=== PATIENT | female | born 2000 | race Hispanic/Latino ===

== ENCOUNTER 2022-07-25 23:08 | Emergency (ER) | payer SELFPAY ==
[2022-07-25 23:39] LABS: Bilirubin Neg (Negative); Blood, Urine 10 (Negative); Clarity Clear (Clear); Glucose, Urine (Dipstick) Normal (Negative); Ketone, Urine Negative (Negative); Leukocyte Negative (Negative); Nitrite Negative (Negative); Protein, Urine (Dipstick) Negative (Neg-Trace); Urobilinogen Normal mg/dL (Less than 2)
[2022-07-25] MEDS ORDERED: Ketorolac Tromethamine 30 MG/ML VIAL ONE (23:39)
[2022-07-25 23:57] LABS: Bacteria/HPF Rare-Few HPF (None Seen); RBC/HPF 0-3 HPF (0-3); WBC/HPF 0-3 HPF (0-3)
[2022-07-26 00:01] LABS: BHCG - Serum Negative (NEGATIVE); Pregs Control Background? CLEAR/WHITE (CLR/WHITE); Pregs Control Bar Appear? YES (CONTROL BAR)
[2022-07-26 00:10] LABS: ALT (SGPT) 21 U/L (8-55); AST (SGOT) 22 U/L (5-34); Albumin 4.6 g/dL (3.5-5.0); Alkaline Phosphatase 58 U/L (40-110); Anion Gap 17 mmol/L (10-20); BUN (Urea Nitrogen) 10 mg/dL (7.0-18.7); Bilirubin, Total 0.4 mg/dL (0.2-1.2); Calc. Creatinine Clearance 0 mL/min (70-130); Calcium 9.6 mg/dL (7.8-10.44); Carbon Dioxide 22 mmol/L (22-29); Chloride 105 mmol/L (98-107); Estimated GFR 111; Globulin 3.3 g/dL (2.4-3.5); Glucose 96 mg/dL (70-105); Protein, Total 7.9 g/dL (6.0-8.3); Sodium 140 mmol/L (136-145)
[2022-07-26 00:22] LABS: #Basophils 0.1 10x3/uL (0.0-0.2); #Eosinphils 0.2 10x3/uL (0.0-0.5); #Monocytes 0.6 10x3/uL (0.0-1.1); #Neutrophils 3.4 10x3/uL (1.5-8.4); %Basophils 0.6 % (0.0-2.0); %Eosinophils 2.8 % (0.0-6.0); %Lymphocytes 46.2 % (18.0-47.0); %Monocytes 6.9 % (0.0-10.0); %Neutrophils 43.1 % (40.0-75.0); Hemoglobin 10.6 g/dL (12.0-15.5); Mean Corpuscular HGB CONC 29.7 g/dL (32.0-36.0); Mean Corpuscular Hemoglobin 21.2 pg (27.0-33.0); Mean Corpuscular Volume 71.4 fl (81.6-98.3); Mean Platelet Volume 9.4 fl (7.4-10.4); Platelet Count 483 10x3/uL (150-450); RBC Distribution Width 19.8 % (11.5-14.5)
[2022-07-26 01:33] LABS: Anisocytosis SLIGHT = 6-15 cells (100X) (0-5/hpf); Hypochromia MODERATE=16-30 cells (100X) (0-5/hpf); Microcytosis MODERATE=15-30 cells (100X) (0-5/hpf); Ovalocytes SLIGHT = 2-5 cells (100X) (0-1/hpf); Poikilocytosis SLIGHT = 6-15 cells (100X) (0-5/hpf)
[2022-07-26 01:34] LABS: Polychromasia SLIGHT = 2-3 cells (100X) (0-2/hpf)
[2022-07-26 01:35] LABS: Elliptocytes SLIGHT = 2-5 cells (100X) (0-1/hpf); Macrocytosis SLIGHT = 6-15 cells (100X) (0-5/hpf); Platelet Morphology Comment Appears Increased
[2022-07-26 01:36] LABS: Large Platelets SLIGHT
== END 2022-07-26 01:28 | disposition home or self-care (01) ==
LOC: CSHERS 23:08
DX: N83.202 Unspecified ovarian cyst, left side (principal)
CPT/HCPCS: 76856; 80053; 81003; 81015; 84703; 85025; 96374; J1885

== ENCOUNTER 2022-12-09 18:43 | Emergency (ER) | payer OTHER, SELFPAY ==
[2022-12-09] MEDS ORDERED: Ondansetron PF 4 MG/2 ML Vial ONE (19:39)
[2022-12-09 19:40] LABS: Bilirubin Neg (Negative); Blood, Urine 10 (Negative); Clarity Slightly Cloudy (Clear); Glucose, Urine (Dipstick) Normal (Negative); Ketone, Urine 15 mg/dL (Negative); Leukocyte 500 (Negative); Nitrite Negative (Negative); Protein, Urine (Dipstick) Negative (Neg-Trace); Urobilinogen Normal mg/dL (Less than 2)
[2022-12-09 19:52] LABS: Bacteria/HPF Rare-Few HPF (None Seen); CAUTI Indications for Culture Pelvic or flank pain; RBC/HPF 0-3 HPF (0-3); Urine Culture Reflex No No
[2022-12-09 20:09] LABS: #Eosinphils 0.1 10x3/uL (0.0-0.5); #Monocytes 0.6 10x3/uL (0.0-1.1); #Neutrophils 7.2 10x3/uL (1.5-8.4); %Basophils 0.4 % (0.0-2.0); %Eosinophils 0.9 % (0.0-6.0); %Lymphocytes 26.1 % (18.0-47.0); %Monocytes 5.8 % (0.0-10.0); %Neutrophils 66.2 % (40.0-75.0); Hematocrit 38.4 % (34.9-44.5); Mean Corpuscular HGB CONC 33.9 g/dL (32.0-36.0); Mean Corpuscular Hemoglobin 27.5 pg (27.0-33.0); Mean Corpuscular Volume 81.2 fl (81.6-98.3); Mean Platelet Volume 9.3 fl (7.4-10.4); Platelet Count 292 10x3/uL (150-450); RBC Distribution Width 19.9 % (11.5-14.5); Red Blood Cell (RBC) Count 4.73 10x6/uL (3.90-5.03); White Blood Cell (WBC) Count 10.8 10x3/uL (3.5-10.5)
[2022-12-09 20:21] LABS: Anion Gap 16 mmol/L (10-20); BUN (Urea Nitrogen) 5 mg/dL (7.0-18.7); Calc. Creatinine Clearance 0 mL/min (70-130); Calcium 9.3 mg/dL (7.8-10.44); Carbon Dioxide 20 mmol/L (22-29); Chloride 106 mmol/L (98-107); Estimated GFR 133; Glucose 76 mg/dL (70-105); Potassium 4.1 mmol/L (3.5-5.1); Sodium 138 mmol/L (136-145)
[2022-12-09] MEDS ORDERED: Acetaminophen 500 MG TAB ONE (20:29)
[2022-12-09] MEDS ORDERED: cefTRIAXone (ROCEPHIN) 1 GM VIAL ONE (20:29)
== END 2022-12-09 21:58 | disposition home or self-care (01) ==
LOC: CSHERS 18:43
DX: O23.02 Infections of kidney in pregnancy, second trimester (principal); O23.12 Infections of bladder in pregnancy, second trimester; O99.612 Diseases of the digestive system complicating pregnancy, second trimester; O99.712 Diseases of the skin and subcutaneous tissue complicating pregnancy, second trimester; O20.8 Other hemorrhage in early pregnancy; N30.01 Acute cystitis with hematuria; L82.1 Other seborrheic keratosis; Z3A.17 17 weeks gestation of pregnancy
CPT/HCPCS: 76815; 80048; 81001; 85025; 87086; 96374; 96375; J0696; J2405

== ENCOUNTER 2023-05-12 02:14 | Day surgery (SDC) | payer MEDICAID, OTHER ==
[2023-05-12] MEDS ORDERED: hydrALAZINE 20 MG/ML VIAL SLOW IVP PRN (02:47)
[2023-05-12 05:01] VITALS: BMI 31.1
== END 2023-05-12 04:48 | disposition home or self-care (01) ==
LOC: CSHLD/OP 02:14
PROVIDERS: ATTEND Family Medicine
DX: O47.1 False labor at or after 37 completed weeks of gestation (principal); O98.813 Other maternal infectious and parasitic diseases complicating pregnancy, third trimester; B95.1 Streptococcus, group B, as the cause of diseases classified elsewhere; O34.83 Maternal care for other abnormalities of pelvic organs, third trimester; N83.209 Unspecified ovarian cyst, unspecified side; Z79.82 Long term (current) use of aspirin; Z79.899 Other long term (current) drug therapy; Z3A.39 39 weeks gestation of pregnancy
CPT/HCPCS: 99283

== ENCOUNTER 2023-05-14 14:41 | Inpatient (IN) | payer MEDICAID, OTHER, SELFPAY ==
[2023-05-14] MEDS ORDERED: Diphenoxylate HCl/Atropine Tablet PO PRN ×2 (18:42→18:44)
[2023-05-14] MEDS ORDERED: Promethazine HCl 25 MG/ML VIAL IM PRN ×2 (18:42→18:44)
[2023-05-14] MEDS ORDERED: Methylergonovine 0.2 MG/ML VIAL IM PRN ×2 (18:42→18:44)
[2023-05-14] MEDS ORDERED: Ondansetron PF 4 MG/2 ML Vial IVP PRN ×3 (18:42→22:10)
[2023-05-14] MEDS ORDERED: fentaNYL 50 mcg/mL 1 mL Vial SLOW IVP PRN ×2 (18:42→18:44)
[2023-05-14] MEDS ORDERED: Ibuprofen 800 MG TAB PO PRN (18:42)
[2023-05-14] MEDS ORDERED: hydrALAZINE 20 MG/ML VIAL SLOW IVP PRN ×3 (18:42→22:10)
[2023-05-14] MEDS ORDERED: HYDROcodone/Acetaminophen 5/325 mg Tablet PO PRN ×2 (18:42→22:10)
[2023-05-14] MEDS ORDERED: Tranexamic Acid 1,000 MG/10 ML VIAL IVP PRN ×2 (18:42→18:44)
[2023-05-14] MEDS ORDERED: Carboprost 250 MCG/ML AMP IM PRN ×2 (18:42→18:44)
[2023-05-14] MEDS ORDERED: Acetaminophen 500 MG TAB PO PRN (18:42)
[2023-05-14] MEDS ORDERED: Lidocaine 1% (PF) 30 ML VIAL SC PRN ×2 (18:42→18:44)
[2023-05-14] MEDS ORDERED: Misoprostol 200 MCG TAB PR PRN ×2 (18:42→18:44)
[2023-05-14] MEDS ORDERED: Docusate 100 MG CAP PO PRN (18:44)
[2023-05-14] MEDS ORDERED: Oxytocin 30 units/NS 500 ML 500 ML IV SCH ×5 (18:45)
[2023-05-14] MEDS ORDERED: Penicillin G Potassium 5 MILL.UNITS in Sodium Chloride 0.9% 100 ML IVPB SCH ×2 (18:45)
[2023-05-14] MEDS ORDERED: Penicillin G 2.5 MILL.units 2.5 MILL.UNITS in Premix 1 BAG IVPB SCH ×2 (18:45→22:45)
[2023-05-14] MEDS ORDERED: Lactated Ringer's 1,000 ML IV SCH ×2 (18:45)
[2023-05-14] MEDS ORDERED: Penicillin G Potassium 5 MILL.UNITS VIAL ONE (18:51)
[2023-05-14 19:03] VITALS: BMI 26.4
[2023-05-14 19:12] LABS: Hematocrit 40.8 % (34.9-44.5); Mean Corpuscular HGB CONC 34.3 g/dL (32.0-36.0); Mean Corpuscular Hemoglobin 28.9 pg (27.0-33.0); Mean Corpuscular Volume 84.3 fl (81.6-98.3); Mean Platelet Volume 10.5 fl (7.4-10.4); Platelet Count 353 10x3/uL (150-450); RBC Distribution Width 13.7 % (11.5-14.5); Red Blood Cell (RBC) Count 4.84 10x6/uL (3.90-5.03); White Blood Cell (WBC) Count 9.6 10x3/uL (3.5-10.5)
[2023-05-14 19:44] LABS: Syphilis Antibody Nonreactive (Nonreactive); Syphilis Antibody Index 0.04 S/CO (<1.00 Non-Reactive)
[2023-05-14 19:45] LABS: HBSAg Index 0.21 S/CO (0-0.99); Hep B Surf Ag - L&D Non-Reactive S/CO (NonReactive)
[2023-05-14] MEDS ORDERED: diphenhydrAMINE 25 MG CAP PO PRN (22:10)
[2023-05-14] MEDS ORDERED: Lanolin Ointment 7 GM TUBE TOP PRN (22:10)
[2023-05-14] MEDS ORDERED: Boostrix 0.5 ML (Tdap) VIAL (>/=7 yrs of age) IM ONE (22:10)
[2023-05-14] MEDS ORDERED: Bisacodyl 10 MG SUPP PR PRN (22:10)
[2023-05-14] MEDS ORDERED: Benzocaine-Menthol 82.5 ML CAN TOP PRN (22:10)
[2023-05-14] MEDS ORDERED: Milk Of Magnesia 30 ML UDCUP PO PRN (22:10)
[2023-05-15] MEDS: HYDROcodone/Acetaminophen 5/325 mg Tablet PO PRN ×2 (00:23→08:44)
[2023-05-15] MEDS: Ibuprofen 800 MG TAB PO SCH ×3 (05:25→21:33)
[2023-05-15] MEDS: Prenatal Vitamin 1 TAB PO SCH (08:37)
[2023-05-15] MEDS: Docusate 100 MG CAP PO SCH ×2 (08:37→21:34)
[2023-05-15] MEDS: Ferrous Sulfate 325 MG TAB PO SCH ×2 (08:38→15:15)
[2023-05-16] MEDS: Ibuprofen 800 MG TAB PO SCH ×3 (06:14→21:13)
[2023-05-16] MEDS: Prenatal Vitamin 1 TAB PO SCH (08:12)
[2023-05-16] MEDS: Docusate 100 MG CAP PO SCH ×2 (08:12→21:13)
[2023-05-16] MEDS: Ferrous Sulfate 325 MG TAB PO SCH ×2 (11:23→21:09)
[2023-05-17] MEDS: Ibuprofen 800 MG TAB PO SCH (05:17)
[2023-05-17] MEDS: Ferrous Sulfate 325 MG TAB PO SCH (07:55)
[2023-05-17] MEDS: Docusate 100 MG CAP PO SCH (08:07)
[2023-05-17] MEDS: Prenatal Vitamin 1 TAB PO SCH (08:07)
[2023-05-17 08:16] VITALS: BP 133/88; TEMP 98.3
== END 2023-05-17 09:55 | disposition home or self-care (01) | DRG 807 ==
LOC: CSHLD 18:08 → CSHPP 22:54
PROVIDERS: ADMIT Family Medicine; ATTEND Family Medicine
PROC: 10E0XZZ Delivery of Products of Conception, External Approach (ICD-10-PCS; principal; 2023-05-14)
PROC: 0KQM0ZZ Repair Perineum Muscle, Open Approach (ICD-10-PCS; 2023-05-14)
PROC: 10907ZC Drainage of Amniotic Fluid, Therapeutic from Products of Conception, Via Natural or Artificial Opening (ICD-10-PCS; 2023-05-14)
PROC: 0UQMXZZ Repair Vulva, External Approach (ICD-10-PCS; 2023-05-14)
DX: O99.824 Streptococcus B carrier state complicating childbirth (principal); Z37.0 Single live birth; O48.0 Post-term pregnancy; Z3A.40 40 weeks gestation of pregnancy; O70.1 Second degree perineal laceration during delivery; O70.0 First degree perineal laceration during delivery
CPT/HCPCS: 85027; 86780; 86850; 86900; 86901; 87340; J2001; J2540; J2590

== ENCOUNTER 2023-05-24 21:43 | Emergency (ER) | payer MEDICAID, SELFPAY ==
[2023-05-24] MEDS ORDERED: cefTRIAXone (ROCEPHIN) 1 GM VIAL ONE (23:08)
[2023-05-24] MEDS ORDERED: Vancomycin 1 GM VIAL ONE (23:09)
[2023-05-24 23:15] LABS: #Basophils 0.1 10x3/uL (0.0-0.2); #Eosinphils 0.3 10x3/uL (0.0-0.5); #Monocytes 0.6 10x3/uL (0.0-1.1); #Neutrophils 5.4 10x3/uL (1.5-8.4); %Eosinophils 3.3 % (0.0-6.0); %Lymphocytes 30.9 % (18.0-47.0); %Neutrophils 57.5 % (40.0-75.0); Hematocrit 44.3 % (34.9-44.5); Hemoglobin 14.4 g/dL (12.0-15.5); Mean Corpuscular HGB CONC 32.5 g/dL (32.0-36.0); Mean Corpuscular Hemoglobin 28.2 pg (27.0-33.0); Mean Corpuscular Volume 86.9 fl (81.6-98.3); Mean Platelet Volume 8.6 fl (7.4-10.4); Platelet Count 437 10x3/uL (150-450); RBC Distribution Width 13.7 % (11.5-14.5); White Blood Cell (WBC) Count 9.3 10x3/uL (3.5-10.5)
[2023-05-24 23:33] LABS: ALT (SGPT) 44 U/L (8-55); AST (SGOT) 26 U/L (5-34); Albumin 4.1 g/dL (3.5-5.0); Alkaline Phosphatase 148 U/L (40-110); Anion Gap 15 mmol/L (10-20); BUN (Urea Nitrogen) 18 mg/dL (7.0-18.7); Bilirubin, Total 0.3 mg/dL (0.2-1.2); Calc. Creatinine Clearance 0 mL/min (70-130); Calcium 9.8 mg/dL (7.8-10.44); Carbon Dioxide 27 mmol/L (22-29); Chloride 103 mmol/L (98-107); Estimated GFR 115; Glucose 85 mg/dL (70-105); Potassium 4.8 mmol/L (3.5-5.1); Protein, Total 8.1 g/dL (6.0-8.3); Sodium 140 mmol/L (136-145)
[2023-05-25] MEDS ORDERED: Ketorolac Tromethamine 30 MG (1 mL) VIAL ONE (00:07)
[2023-05-25 02:07] LABS: Bilirubin Neg (Negative); Blood, Urine 25 (Negative); Clarity Clear (Clear); Glucose, Urine (Dipstick) Normal (Negative); Ketone, Urine Negative (Negative); Leukocyte 25 (Negative); Nitrite Negative (Negative); Protein, Urine (Dipstick) Negative (Neg-Trace); Urobilinogen Normal mg/dL (Less than 2)
[2023-05-25 02:14] LABS: Bacteria/HPF None Seen HPF (None Seen); CAUTI Indications for Culture Pelvic or flank pain; RBC/HPF 0-3 HPF (0-3); Squamous Epithelial 0-3 HPF (0-3); Urine Culture Reflex No No; WBC/HPF 0-3 HPF (0-3)
== END 2023-05-25 02:05 | disposition home or self-care (01) ==
LOC: CSHERS 21:43
DX: O90.89 Other complications of the puerperium, not elsewhere classified (principal); L03.314 Cellulitis of groin; O86.20 Urinary tract infection following delivery, unspecified; N39.0 Urinary tract infection, site not specified
CPT/HCPCS: 36415; 80053; 81001; 83605; 85025; 87040; 96365; 96367; 96375; J0696; J1885; J3370